=== PATIENT | female | born 1965 | race Hispanic/Latino ===

== ENCOUNTER 2017-08-27 18:30 | Inpatient (IN) | payer OTHER ==
[~2017-08-27] VITALS: Ht 157.5 cm; Wt 75.7 kg
[~2017-08-27 18:30] MED LIST: ATEN100T PO; LISI-617 PO; VENL150T3 PO
[2017-08-27 19:01] LABS: BILIRUBIN,URINE Negative (NEGATIVE); COLOR,URINE Yellow (YELLOW); GLUCOSE, URINE (UA) Negative (NEGATIVE); KETONES,URINE 15 mg/dL (NEGATIVE); LEUKOCYTE ESTERASE ,URINE Small (NEGATIVE); NITRATE,URINE Negative (NEGATIVE); OCCULT BLOOD,URINE Large (NEGATIVE); PROTEIN,URINE Trace (NEGATIVE)
[2017-08-27 19:09] LABS: APPEARANCE,URINE SLIGHTLY CLOUDY (CLEAR)
[2017-08-27 19:11] LABS: BASOPHILS % (AUTO) 0.4 % (0.0-5.0); HEMATOCRIT 40.2 % (36-48); LYMPHOCYTES % (AUTO) 7.5 % (21.0-51.0); MEAN CORPUSCULAR HEMOGLOBIN 30.5 pg (27.0-33.0); MEAN CORPUSCULAR HGB CONC 34.7 g/dL (32.0-36.0); MONOCYTES % (AUTO) 7.7 % (3.0-13.0); NEUTROPHILS % (AUTO) 84.4 % (40.0-77.0); PLATELET COUNT (AUTO) 308 K/uL (130-400); RED BLOOD CELL COUNT(AUTO) 4.57 MIL/uL (4.00-5.50); RED CELL DISTRIBUTION WIDTH 13.2 % (11.0-15.5); WHITE BLOOD COUNT (AUTO) 13.9 K/uL (4.8-10.8)
[2017-08-27 19:22] LABS: CREATININE 0.8 mg/dL (0.5-1.5); POTASSIUM 3.6 mmol/L (3.5-5.1)
[2017-08-27 19:33] LABS: AMORPHOUS SEDIMENT,UR Few /LPF (None Seen); BACTERIA,URINE Moderate /HPF (None Seen); SQUAMOUS EPITHELIAL CELL,UR Few /LPF (0-2)
[2017-08-27 19:34] LABS: MUCUS,URINE Rare LPF (None Seen)
[2017-08-27 19:34] LABS: ALBUMIN 3.4 g/dL (3.5-5.0); BILIRUBIN,TOTAL 0.6 mg/dL (0.2-1.0); CREATINE KINASE MB 1.1 ng/mL (0.5-3.6); INR 0.99 (0.85-1.15); PARTIAL THROMBOPLASTIN TIME 25.7 SEC (26.3-35.5); PROTHROMBIN TIME 10.4 SEC (9.6-11.6); TOTAL PROTEIN, SERUM 7.7 g/dL (6.0-8.3)
[2017-08-27] MEDS ORDERED: ONDANSETRON HCL 4 MG/2 ML VIAL ONE (20:19)
[2017-08-27] MEDS ORDERED: HYDROMORPHONE HCL 2 MG/ML VIAL ONE (20:20)
[2017-08-27] MEDS ORDERED: ONDANSETRON HCL 4 MG/2 ML VIAL IVP PRN (21:45)
[2017-08-27] MEDS ORDERED: HYDRALAZINE HCL 20 MG/ML VIAL IV PRN (21:45)
[2017-08-27] MEDS ORDERED: NITROGLYCERIN 0.4 MG SL TAB SL PRN (21:45)
[2017-08-27] MEDS ORDERED: MORPHINE SULFATE 2 MG/ML 1ML SYG IVP PRN (21:45)
[2017-08-27] MEDS ORDERED: POTASSIUM CHLORIDE 20MEQ/100ML 100 ML IV PRN (22:00)
[2017-08-27] MEDS ORDERED: POTASSIUM CHLORIDE 20 MEQ ERTAB PO PRN (22:00)
[2017-08-27] MEDS ORDERED: LIDOCAINE HCL-MPF 1% 2ML VIAL IJ PRN (22:00)
[2017-08-27] MEDS ORDERED: POTASSIUM CHLORIDE 10% ELIXIR 20 MEQ/15 ML UDCUP PO PRN (22:00)
[2017-08-27] MEDS ORDERED: MORPHINE SULFATE 2 MG/ML 1ML SYG ONE (22:50)
[2017-08-27 23:20] VITALS: BP 127/86
[2017-08-28] MEDS ORDERED: LORAZEPAM 2 MG/ML 1 ML VIAL IVP PRN (02:45)
[2017-08-28 04:00] VITALS: BP 118/71
[2017-08-28 05:44] LABS: HEMATOCRIT 35.1 % (36-48); MEAN CORPUSCULAR HEMOGLOBIN 30.6 pg (27.0-33.0); MEAN CORPUSCULAR HGB CONC 34.9 g/dL (32.0-36.0); MEAN CORPUSCULAR VOLUME 87.9 fL (79-99); PLATELET COUNT (AUTO) 283 K/uL (130-400); RED CELL DISTRIBUTION WIDTH 12.9 % (11.0-15.5); WHITE BLOOD COUNT (AUTO) 7.2 K/uL (4.8-10.8)
[2017-08-28 05:55] LABS: CREATININE 0.7 mg/dL (0.5-1.5); POTASSIUM 4.1 mmol/L (3.5-5.1)
[2017-08-28 08:00] VITALS: BP 122/76
[2017-08-28] MEDS: LEVOFLOXACIN 500 MG/D5W 100 ML 100 ML IV SCH (08:59)
[2017-08-28] MEDS: FAMOTIDINE/PF 20 MG/2 ML VIAL IV SCH ×3 (09:00→20:31)
[2017-08-28 11:27] VITALS: BP 136/91
[2017-08-28] MEDS: SODIUM CHLORIDE 0.9% 1000ML 1,000 ML IV SCH (13:08)
[2017-08-28 16:00] VITALS: BP 138/88
[2017-08-28 20:00] VITALS: BP 136/88
[2017-08-28] MEDS ORDERED: CLON1TAB4 PO (20:13)
[2017-08-28] MEDS ORDERED: LACT1TAB26 PO (20:13)
[2017-08-29] VITALS (9 sets, daily range): BP systolic 127–159; BP diastolic 82–96
[2017-08-29] MEDS ORDERED: LORAZEPAM 2 MG/ML 1 ML VIAL IVP PRN
[2017-08-29] MEDS: LEVOFLOXACIN 500 MG/D5W 100 ML 100 ML IV SCH (02:15)
[2017-08-29] MEDS: SODIUM CHLORIDE 0.9% 1000ML 1,000 ML IV SCH ×2 (04:00→10:53)
[2017-08-29] MEDS ORDERED: METOPROLOL TARTRATE 1 MG/ML 5ML VIAL IV ONE (04:02)
[2017-08-29] MEDS ORDERED: METOPROLOL TARTRATE 1 MG/ML 5ML VIAL IV SCH ×2 (04:15→06:00)
[2017-08-29 05:18] LABS: CREATININE 0.8 mg/dL (0.5-1.5); POTASSIUM 3.8 mmol/L (3.5-5.1)
[2017-08-29] MEDS: LACTOBACILLUS RHAMNOSUS GG 1 EACH CAP.SPRINK PO SCH (09:47)
[2017-08-29] MEDS: FAMOTIDINE/PF 20 MG/2 ML VIAL IV SCH ×2 (10:52→20:27)
[2017-08-29] MEDS: ENOXAPARIN SODIUM 40 MG/0.4 ML SYRINGE SQ SCH (10:58)
[2017-08-29] MEDS: METOPROLOL TARTRATE 1 MG/ML 5ML VIAL IV SCH ×2 (11:02→16:08)
[2017-08-29] MEDS: ATENOLOL 50 MG TABLET PO SCH (18:21)
[2017-08-29] MEDS: LISINOPRIL 5 MG TABLET PO SCH (18:22)
[2017-08-29] MEDS ORDERED: CLONAZEPAM 0.5 MG TABLET PO SCH (21:00)
[2017-08-30] MEDS: LEVOFLOXACIN 500 MG/D5W 100 ML 100 ML IV SCH (03:27)
[2017-08-30 03:35] VITALS: BP 130/84
[2017-08-30 04:51] LABS: HEMATOCRIT 36.4 % (36-48); MEAN CORPUSCULAR HEMOGLOBIN 30.3 pg (27.0-33.0); MEAN CORPUSCULAR HGB CONC 34.4 g/dL (32.0-36.0); MEAN CORPUSCULAR VOLUME 88.2 fL (79-99); PLATELET COUNT (AUTO) 301 K/uL (130-400); RED BLOOD CELL COUNT(AUTO) 4.13 MIL/uL (4.00-5.50); RED CELL DISTRIBUTION WIDTH 13.1 % (11.0-15.5); WHITE BLOOD COUNT (AUTO) 9.1 K/uL (4.8-10.8)
[2017-08-30 05:03] LABS: CREATININE 0.7 mg/dL (0.5-1.5); POTASSIUM 3.8 mmol/L (3.5-5.1)
[2017-08-30] MEDS: LACTOBACILLUS RHAMNOSUS GG 1 EACH CAP.SPRINK PO SCH (07:55)
[2017-08-30 08:00] VITALS: BP 136/89
[2017-08-30] MEDS: ENOXAPARIN SODIUM 40 MG/0.4 ML SYRINGE SQ SCH (09:00)
[2017-08-30] MEDS ORDERED: LISINOPRIL 5 MG TABLET PO SCH (09:00)
[2017-08-30] MEDS ORDERED: VENLAFAXINE HCL XR 150 MG CAP PO SCH (09:00)
[2017-08-30] MEDS ORDERED: ATENOLOL 50 MG TABLET PO SCH (09:00)
[2017-08-30] MEDS ORDERED: POLY17PO4 PO (09:04)
[2017-08-30 09:24] VITALS: BP 136/89
[2017-08-30] MEDS: FAMOTIDINE/PF 20 MG/2 ML VIAL IV SCH (09:24)
[2017-08-30] MEDS: ATENOLOL 50 MG TABLET PO SCH (09:24)
[2017-08-30] MEDS: LISINOPRIL 5 MG TABLET PO SCH (09:26)
== END 2017-08-30 12:00 | disposition home or self-care (01) | DRG 389 ==
LOC: EDH 18:30 → OBSVTOIN 20:22 → EDHIP 20:22 → 3DH 22:22
PROVIDERS: ADMIT Family Medicine; ATTEND Family Medicine
DX: K56.609 Unspecified intestinal obstruction, unspecified as to partial versus complete obstruction (principal); N39.0 Urinary tract infection, site not specified; F32.9 Major depressive disorder, single episode, unspecified; I10 Essential (primary) hypertension; F41.9 Anxiety disorder, unspecified; R63.0 Anorexia; Z90.710 Acquired absence of both cervix and uterus; Z98.891 History of uterine scar from previous surgery; Z28.21 Immunization not carried out because of patient refusal
CPT/HCPCS: 36415; 74018; 74021; 74176; 80048; 80053; 81001; 82150; 82550; 82553; 83690; 85025; 85027; 85610; 85730; 93005; J0360; J1170; J1650; J1956; J2060; J2405; J3490; J7030